=== PATIENT | female | born 1990 | race Caucasian/White ===

== ENCOUNTER 2020-09-04 13:16 | Emergency (ER) | payer OTHER, SELFPAY ==
--- NOTE | ~2020-09-04 | US_ITS ---
EXAMINATION: US pelvic complete w TV DATE: 09/04/2020 16:18 INDICATION: Left lower quadrant abdominal pain. Probable hemorrhagic ovarian cyst. TECHNIQUE: Multiple transabdominal and endovaginal sonographic images of the pelvis were obtained. COMPARISON: CT dated 09/04/2020 FINDINGS: The uterus measures 7.5 x 3.7 x 5.4 cm. The endometrial complex measures 9 mm in thickness. The righ t ovary measures 2.7 x 2.4 x 2.7 cm. The left ovary measures 2.6 x 2.8 x 2.7 cm. 2.7 x 2.3 x 2.6 cm a vascular hypoechoic region within the left ovary with small more peripheral nearly anechoic region wi th appearance suggesting early organization of clot within a hemorrhagic cyst. There is normal vascul ar flow in the ovaries. There is small amount of anechoic free fluid in the cul-de-sac which may be r elated to cyst rupture. IMPRESSION: 1. 2.7 cm complex hypoechoic lesion in the left ovary which appears avascular and most likely represe nts a hemorrhagic cyst. Consider follow-up pelvic ultrasound in 6-12 weeks to document resolution. 2. Small amount of free fluid in the cul-de-sac which could be physiologic or related to cyst rupture . Reviewed, dictated and finalized at location A. STITCHER IMPRESSION: 1. 2.7 cm complex hypoechoic lesion in the left ovary which appears avascular a nd most likely represents a hemorrhagic cyst. Consider follow-up pelvic ultraso und in 6-12 weeks to document resolution. 2. Small amount of free fluid in the cul-de-sac which could be physiologic or r elated to cyst rupture.
--- NOTE | ~2020-09-04 | CT_ITS ---
EXAMINATION: CT abdomen pelvis w con DATE: 09/04/2020 15:21 INDICATION: Left lower quadrant abdominal pain. TECHNIQUE: Computed tomography (CT) of the abdomen and pelvis was performed with 100 mL Omnipaque 350 intravenous contrast. Automated exposure control and iterative reconstruction technique were employe d. The dose-length product was 198.98 mGy-cm. COMPARISON: CT abdomen and pelvis 11/13/2016 FINDINGS: The visualized portions of the lung bases demonstrate minimal atelectasis. No pleural effus ion. The heart size is normal. No pericardial effusion. The liver, gallbladder, spleen, pancreas, adr enal glands, and left kidney are normal. There is a 3 mm cyst in right kidney. There are no dilated l oops of bowel. The appendix is normal. There are no pathologically enlarged lymph nodes. There is a s mall volume of pelvic ascites, likely physiologic. There is a 4.4 x 2.0 cm mass in left ovary. The jessie osmani are unremarkable. IMPRESSION: 1. 4.4 x 2.0 cm mass in left ovary, most likely a hemorrhagic cyst. Pelvis ultrasound is recommended. Reviewed, dictated and finalized at location B. NESS INFORMATION CONSULTANT IMPRESSION: 1. 4.4 x 2.0 cm mass in left ovary, most likely a hemorrhagic cyst. Pelvis ultr asound is recommended.
[2020-09-04 13:45] VITALS: BP 103/76; PULSE 96; RESP 16; TEMP 37.6; O2SAT 99
[2020-09-04 14:49] LABS: Basophils Absolute Auto 0.1 K/mm3 (0.0-0.1); Basophils Percent Auto 1.1 % (0.2-1.2); Eosinophils Percent Auto 0.4 % (0-4.4); Hematocrit 39.2 % (37.0-47.0); Hemoglobin 13.4 g/dL (12.0-15.0); Immature Granulocyte Absolute 0.01 K/mm3 (0.00-0.031); Immature Granulocyte Percent A 0.2 % (0-0.5); Lymphocytes Percent Auto 24.4 % (18.3-44.2); Mean Corpuscular HGB Conc 34.2 g/dl (32-36); Mean Corpuscular Hemoglobin 32.4 pg (26-34); Mean Corpuscular Volume 94.7 fl (80-100); Mean Platelet Volume 10.7 fl (7.4-10.4); Monocytes Absolute Auto 0.3 K/mm3 (0.1-0.6); Monocytes Percent Auto 5.8 % (2.6-8.5); Neutrophils Absolute Auto 3.6 K/mm3 (1.3-6.7); Neutrophils Percent Auto 68.1 % (45.5-73.1); Platelet Count Result 216 k/mm3 (150-375); Red Blood Count 4.14 M/mm3 (4.2-5.4); Red Cell Distribution Width 11.8 % (11.5-14.5); White Blood Count 5.3 K/mm3 (4.5-10.0)
[2020-09-04] MEDS: ONDANSETRON INJ 4 MG/2 ML VIAL IV PUSH (14:53)
[2020-09-04] MEDS: MORPHINE SULFATE (*CRX) 4 MG/ML INJ IV PUSH (14:53)
[2020-09-04] MEDS: SODIUM CHLORIDE 0.9% IV 1,000 ML 999 ML IV CONT (14:54)
[2020-09-04 14:59] LABS: Add Urine Microscopic? YES; Amorphous Sediment Urine Moderate; Appearance Urine Turbid (Clear); Bacteria Urine 4+ /hpf; Bilirubin Urine Negative (Negative); Blood Urine Negative (Negative); Color Urine Yellow (Yellow); Glucose Urine UA Negative (Negative); Ketones Urine 2+ mg/dL (Negative); Leukocyte Esterase Ur Negative LEU/UL (Negative); Mucus Urine Heavy /lpf; Nitrate Urine Negative (Negative); Protein Urine 1+ mg/dL (Negative); Squamous Epithelial Cell Urine Many /hpf (Few); Urobilinogen Urine Negative mg/dL (<2.0)
[2020-09-04 15:02] LABS: Alanine Aminotransferase 13 U/L (4-35); Albumin Level 4.7 g/dL (3.5-5.1); Alkaline Phosphatase 32 U/L (38-126); Anion Gap 10 mmol/L (8-16); Aspartate Amino Transferase 21 U/L (14-36); Bilirubin,Total 0.6 mg/dL (0.2-1.3); Blood Urea Nitrogen 9 mg/dL (7-17); Calcium 9.3 mg/dL (8.4-10.2); Carbon Dioxide 24 mmol/L (22-30); Chloride 106 mmol/L (98-107); Estimated CRCL calculation 114 ml/min; Estimated Glomerular Filt Rate > 60; Glucose 90 mg/dL (65-105); Lipase 100 U/L (23-300); Potassium 3.4 mmol/L (3.4-5.0); Sodium 140 mmol/L (137-145)
[2020-09-04 15:26] VITALS: BP 134/70; PULSE 70; RESP 12; O2SAT 99
[2020-09-04 16:15] VITALS: BP 127/80; PULSE 80; RESP 12; O2SAT 99
[2020-09-04 17:15] LABS: Acetaminophen < 10 ug/mL (10-30); Ethanol < 10 mg/dL (<10); Salicylate < 1.0 mg/dL (2-20)
[2020-09-04 17:25] LABS: Amphetamine Screen Urine Negative (Negative); Barbiturate Screen Urine Negative (Negative); Benzodiazepines Screen Urine Negative (Negative); Cannabinoid Screen Urine Positive (Negative); Cocaine Screen Urine Negative (Negative); Methadone Screen Urine Negative (Negative); Opiate Screen Urine Positive (Negative); Phencyclidine Screen Urine Negative (Negative)
[2020-09-04 17:26] VITALS: BP 131/89; PULSE 87; RESP 12; O2SAT 99
--- NOTE | 2020-09-04 17:30 | ED.ABDPAIN ---
HPI - Abdominal Pain General Chief Complaint: Abdominal Pain Stated Complaint: ABDOMINAL PAIN, N/V/D Time Seen by Provider: 09/04/20 14:21 History of Present Illness HPI narrative: Patient is a 29-year-old female who presents the emergency department with chief complaint of left lower quadrant abdominal pain. Patient states that for some time she has been having discomfort but recently started having nausea and vomiting did report that she is also had some diarrhea as well. Patient states the pain is sharp states it is worsened with movement and improved with rest. Patient reports that she has not had any changes in her menses. The patient does report that she has prior history of ovarian cyst. Related Data Home Medications Medication Instructions Recorded Confirmed sertraline mg 09/04/20 09/04/20 Allergies Allergy/AdvReac Type Severity Reaction Status Date / Time No Known Allergies Allergy Verified 09/04/20 13:44 Review of Systems Review of Systems: Narrative: CONSTITUTIONAL: Denies fever, chills, or sweats. EYES: Denies visual changes, redness, or discharge. ENT: Denies rhinorrhea, congestion, sore throat, or otalgia. CARDIOVASCULAR: Denies chest pain, palpitations, or edema. RESPIRATORY: Denies cough or dyspnea. GASTROINTESTINAL: Denies abdominal pain, nausea, vomiting, or diarrhea. GENITOURINARY: Denies dysuria or hematuria. SKIN: Denies rash or itching. MUSCULOSKELETAL: Denies back pain, joint pain, or myalgia. NEUROLOGIC: Denies headache, numbness, or weakness. PSYCHIATRIC: Denies anxiety or depression. All systems reviewed & are unremarkable except as noted in HPI and below PMFSH Social History Social History Gender identity (if verbalized by the patient): Female Course Vital Signs Vital signs: Vital Signs Temperature 37.6 C H 09/04/20 13:45 Pulse Rate 96 09/04/20 13:45 Respiratory Rate 16 09/04/20 13:45 Blood Pressure 103/76 09/04/20 13:45 Pulse Oximetry 99 09/04/20 13:45 Temperature 37.6 C H 09/04/20 13:45 Pulse Rate 70 09/04/20 19:04 Respiratory Rate 12 09/04/20 19:04 Blood Pressure 128/70 09/04/20 19:04 Pulse Oximetry 99 09/04/20 19:04 MDM - Abdominal Pain Lab Data Result diagrams: 09/04/20 14:35 09/04/20 14:35 Labs: Lab Results 09/04/20 09/04/20 09/04/20 Range/Units 14:35 14:35 14:35 WBC 5.3 (4.5-10.0) K/mm3 RBC 4.14 L (4.2-5.4) M/mm3 Hgb 13.4 (12.0-15.0) g/dL Hct 39.2 (37.0-47.0) % MCV 94.7 (80-100) fl MCH 32.4 (26-34) pg MCHC 34.2 (32-36) g/dl RDW 11.8 (11.5-14.5) % Plt Count 216 (150-375) k/mm3 MPV 10.7 H (7.4-10.4) fl Immature Gran % (Auto) 0.2 (0-0.5) % Neut % (Auto) 68.1 (45.5-73.1) % Lymph % (Auto) 24.4 (18.3-44.2) % [place] % (Auto) 5.8 (2.6-8.5) % Eos % (Auto) 0.4 (0-4.4) % Baso % (Auto) 1.1 (0.2-1.2) % Lymph # (Auto) 1.30 (0.9-3.2) K/mm3 [place] # (Auto) 0.3 (0.1-0.6) K/mm3 Eos # (Auto) 0.0 (0-0.3) K/mm3 Baso # (Auto) 0.1 (0.0-0.1) K/mm3 Abs Immat Gran (auto) 0.01 (0.00-0.031) K/mm3 Absolute Neuts (auto) 3.6 (1.3-6.7) K/mm3 Absolute Nucleated RBC 0.0 (0.0-0.012) K/mm3 Nucleated RBC % 0.0 (0.0-0.2) % Sodium 140 (137-145) mmol/L Potassium 3.4 (3.4-5.0) mmol/L Chloride 106 (98-107) mmol/L Carbon Dioxide 24 (22-30) mmol/L Anion Gap 10 (8-16) mmol/L BUN 9 (7-17) mg/dL Creatinine 0.60 L (0.7-1.0) mg/dL Estim Creat Clear Calc 114 ml/min Estimated GFR > 60 (59 - ) Glucose 90 (65-105) mg/dL Calcium 9.3 (8.4-10.2) mg/dL Total Bilirubin 0.6 (0.2-1.3) mg/dL AST 21 (14-36) U/L ALT 13 (4-35) U/L Alkaline Phosphatase 32 L (38-126) U/L Total Protein 7.0 (6.3-8.2) g/dL Albumin 4.7 (3.5-5.1) g/dL Lipase 100 (23-300) U/L TSH (0.465-4.680) uIU/mL Urine Color Yellow (Yellow) Urine Appearance Turbid H (
[2020-09-04 19:04] VITALS: BP 128/70; PULSE 70; RESP 12; O2SAT 99
[2020-09-04 19:50] VITALS: RESP 17
== END 2020-09-04 19:50 | disposition home or self-care (01) ==
PROVIDERS: Emergency Medicine; Emergency Provider Emergency Medicine; PCP Family Medicine
DX: N83.202 Unspecified ovarian cyst, left side (principal); F32.9 Major depressive disorder, single episode, unspecified
CPT/HCPCS: 36415; 74177; 76830; 76856; 80053; 80307; 81001; 81025; 83690; 84443; 85025; 96361; 96374; 96375; 99284; J2270; J2405; J7030; Q9967

== ENCOUNTER 2020-10-06 10:45 | Emergency (ER) | payer OTHER, SELFPAY ==
[2020-10-06] VITALS (8 sets, daily range): BP systolic 102–133; BP diastolic 63–77; PULSE 81–113; RESP 16–20; TEMP 36.4–36.9; O2SAT 95–100
--- NOTE | ~2020-10-06 | US_ITS ---
EXAMINATION: US pelvic complete w TV DATE: 10/06/2020 14:10 INDICATION: Left pelvic pain TECHNIQUE: Multiple transabdominal and endovaginal sonographic images of the pelvis were obtained. COMPARISON: None. FINDINGS: The uterus measures 8.2 x 5.4 x 3.7 cm. The endometrial complex measures 11 mm in thickness. The rig ht ovary measures 2.8 x 1.6 x 1.7 cm. There are a few subcentimeter anechoic follicles in the right o vary, the largest measuring up to 9 mm. The left ovary measures 4.8 x 2.4 x 2.5 cm. 2.5 cm hypoechoic likely complex cystic lesion in the left ovary. 2.3 cm anechoic cyst in the left ovary with smaller 7 mm secondary anechoic cystic region within the larger cyst by a thin septation. Finally t here is a 2.3 cm isoechoic lesion within the left ovary with no internal flow on color Doppler sugges ting an additional complex cystic lesion. There is normal vascular flow in the ovaries. There is smal l amount of likely physiologic free fluid in the pelvis. IMPRESSION: 1. Anechoic cyst with single thin internal septation. 2. Additional 2.5 cm hypoechoic and 2.3 cm isoechoic lesions in the left ovary which are most likely complex cystic with differential including hemorrhagic cyst or endometrioma although particularly for the isoechoic lesion could not absolutely exclude solid neoplasm. Would recommend follow-up pre and postcontrast MRI for more definitive determination. Reviewed, dictated and finalized at location A. RVISOR LAST MODEL DEPARTMENT IMPRESSION: 1. Anechoic cyst with single thin internal septation. 2. Additional 2.5 cm hypoechoic and 2.3 cm isoechoic lesions in the left ovary which are most likely complex cystic with differential including hemorrhagic cy st or endometrioma although particularly for the isoechoic lesion could not abs olutely exclude solid neoplasm. Would recommend follow-up pre and postcontrast MRI for more definitive determination.
--- NOTE | ~2020-10-06 | CT_ITS ---
EXAMINATION: CT abdomen pelvis w con DATE: 10/06/2020 12:12 INDICATION: Right lower quadrant abdominal pain. TECHNIQUE: Computed tomography (CT) of the abdomen and pelvis was performed with 100 mL Omnipaque-350 intravenous contrast. Automated exposure control and iterative reconstruction technique were employe d. The dose-length product was 192.69 mGy-cm. COMPARISON: 09/04/2020 FINDINGS: Lung bases are clear. Heart size is normal. No pericardial or pleural effusion. Liver, gallbladder, s pleen, pancreas and bilateral adrenal glands are normal. Small region of cortical scarring at the low er pole of the left kidney. 4 mm right renal cyst. Normal appendix. No bowel obstruction. Cystic stru cture/structures at the right adnexa with greater than simple fluid attenuation which could represent 3 separate hemorrhagic cysts measuring between 2-3 cm or potentially a hydrosalpinx/pyosalpinx. Smal l amount of ascites in the deep pelvis. No free intraperitoneal gas. No pathologically enlarged abdom inal or pelvic lymphadenopathy. Bones are unremarkable. IMPRESSION: 1. Cystic structures are structures at the left adnexa unclear whether 3 separate complex likely hemo rrhagic cysts or contiguous hydrosalpinx/pyosalpinx. Could consider pelvic ultrasound for further tangela luation. 2. Small amount of ascites in the deep pelvis which could be reactive or physiologic. Reviewed, dictated and finalized at location A. MATIC CORN GRINDER OPERATOR IMPRESSION: 1. Cystic structures are structures at the left adnexa unclear whether 3 separa te complex likely hemorrhagic cysts or contiguous hydrosalpinx/pyosalpinx. Coul d consider pelvic ultrasound for further evaluation. 2. Small amount of ascites in the deep pelvis which could be reactive or physio logic.
--- NOTE | 2020-10-06 11:24 | ED.NAVMDI ---
HPI - Nausea/Vomiting/Diarrhea General Chief complaint: Nausea/Vomiting/Diarrhea Stated complaint: N/V X4D Time Seen by Provider: 10/06/20 11:13 Source: patient Mode of arrival: ambulatory Limitations: no limitations History of Present Illness HPI Narrative: 29 years old white female presents with nausea and vomiting for the last 48 hours. Patient unable to keep anything down. History of chronic left lower quadrant pain for months secondary to ovarian cyst, and the pain got slightly worse with the vomiting. Patient scheduled to see her [facility] PLANNER at [facility] next week for possible surgery Patient denies any fever, chills, diarrhea, respiratory symptoms, headache, sore throat. Or exposure to anybody with COVID-19 Related Data Home Medications Medication Instructions Recorded Confirmed sertraline 150 mg PO DAILY 09/04/20 10/06/20 Allergies Allergy/AdvReac Type Severity Reaction Status Date / Time No Known Allergies Allergy Verified 10/06/20 11:37 Review of Systems Review of Systems: Narrative: CONSTITUTIONAL: Denies fever, chills, or sweats. EYES: Denies visual changes, redness, or discharge. ENT: Denies rhinorrhea, congestion, sore throat, or otalgia. CARDIOVASCULAR: Denies chest pain, palpitations, or edema. RESPIRATORY: Denies cough or dyspnea. GASTROINTESTINAL: Denies abdominal pain, nausea, vomiting, or diarrhea. GENITOURINARY: Denies dysuria or hematuria. SKIN: Denies rash or itching. MUSCULOSKELETAL: Denies back pain, joint pain, or myalgia. NEUROLOGIC: Denies headache, numbness, or weakness. PSYCHIATRIC: Denies anxiety or depression. [facility] Past Medical History Medical History (Updated 10/06/20 @ 16:59 by Sloan Latif MD) Ovarian cyst Social History Social History (Updated 10/06/20 @ 11:28 by Sloan Latif MD) Social History: Patient denies smoking, drinking or using drugs Second hand tobacco smoke exposure: No Gender identity (if verbalized by the patient): Female Exam Narrative: Exam Narrative: General appearance: Well-developed, well-nourished Skin: Normal color Head: Normocephalic, nontraumatic Eyes: Clear conjunctiva ENT: Oropharynx normal, ears normal, nose normal Neck: Supple, nontender Chest and respiratory: Airway patent, no respiratory distress, no accessory muscle use Heart: Regular rate/rhythm Abdomen: Soft, mild tenderness with deep palpation of the left lower quadrant, no organomegaly, quiet bowel sounds Vascular: Normal peripheral pulses, normal capillary refill. Musculoskeletal: Neurologic: Alert and oriented ?3, SUPERVISOR SAWING AND ASSEMBLY is normal as tested, no gross motor deficit Course Course Emergency Course: Stable Vital Signs Vital signs: Vital Signs Temperature 36.9 C 10/06/20 11:01 Pulse Rate 110 H 10/06/20 11:01 Respiratory Rate 10/06/20 11:01 Blood Pressure 133/68 10/06/20 11:01 Pulse Oximetry 99 10/06/20 11:01 Temperature 36.9 C 10/06/20 11:01 Pulse Rate 110 H 10/06/20 11:01 Respiratory Rate 10/06/20 11:01 Blood Pressure 133/68 10/06/20 11:01 Pulse Oximetry 99 10/06/20 11:01 MDM - Nausea/Vomiting/Diarrhea Lab Data Labs: UCG Bedside Result Negative Reference Range: Negative Discharge Plan Discharge Clinical Impression: Ovarian cyst Qualifiers: Laterality: left Qualified Code(s): N83.202 - Unspecified ovarian cyst, left side Vomiting Qualifiers: Vomiting type: unspecified Vomiting Intractability: non-intractable Nausea presence: with nausea Qualified Code(s): R11.2 - Nausea with vomiting, unspecified Patient Disposition: Home, Self-Care Condition: Stable Instructions:
[2020-10-06 11:32] LABS: Basophils Absolute Auto 0.1 K/mm3 (0.0-0.1); Basophils Percent Auto 0.7 % (0.2-1.2); Eosinophils Percent Auto 0.1 % (0-4.4); Hemoglobin 13.6 g/dL (12.0-15.0); Immature Granulocyte Absolute 0.02 K/mm3 (0.00-0.031); Immature Granulocyte Percent A 0.2 % (0-0.5); Lymphocytes Absolute Auto 0.87 K/mm3 (0.9-3.2); Lymphocytes Percent Auto 10.7 % (18.3-44.2); Mean Corpuscular Hemoglobin 32.4 pg (26-34); Mean Corpuscular Volume 95.2 fl (80-100); Mean Platelet Volume 10.5 fl (7.4-10.4); Monocytes Absolute Auto 0.4 K/mm3 (0.1-0.6); Monocytes Percent Auto 4.8 % (2.6-8.5); Neutrophils Absolute Auto 6.8 K/mm3 (1.3-6.7); Neutrophils Percent Auto 83.5 % (45.5-73.1); Platelet Count Result 223 k/mm3 (150-375); Red Cell Distribution Width 12.3 % (11.5-14.5); White Blood Count 8.1 K/mm3 (4.5-10.0)
[2020-10-06] MEDS: SODIUM CHLORIDE 0.9% IV 1,000 ML 999 ML IV CONT (11:42)
[2020-10-06 11:44] LABS: Add Urine Microscopic? YES; Alanine Aminotransferase 19 U/L (4-35); Albumin Level 4.9 g/dL (3.5-5.1); Alkaline Phosphatase 36 U/L (38-126); Anion Gap 17 mmol/L (8-16); Appearance Urine Cloudy (Clear); Aspartate Amino Transferase 28 U/L (14-36); Bacteria Urine 3+ /hpf; Bilirubin Urine Negative (Negative); Bilirubin,Total 0.8 mg/dL (0.2-1.3); Blood Urea Nitrogen 12 mg/dL (7-17); Blood Urine 1+ (Negative); Calcium 9.4 mg/dL (8.4-10.2); Carbon Dioxide 14 mmol/L (22-30); Chloride 107 mmol/L (98-107); Color Urine Yellow (Yellow); Estimated CRCL calculation 105 ml/min; Estimated Glomerular Filt Rate > 60; Glucose 84 mg/dL (65-105); Glucose Urine UA Negative (Negative); Ketones Urine 2+ mg/dL (Negative); Leukocyte Esterase Ur Negative LEU/UL (Negative); Lipase 75 U/L (23-300); Mucus Urine Rare /lpf; Nitrate Urine Negative (Negative); Potassium 3.9 mmol/L (3.4-5.0); Protein Urine 2+ mg/dL (Negative); RBC Urine 0-2 /hpf (0-2); Sodium 138 mmol/L (137-145); Specific Grav Ur 1.025 (1.001-1.035); Squamous Epithelial Cell Urine Many /hpf (Few); Transitional Epi Cells Urine Rare /hpf (None Seen); Urobilinogen Urine Negative mg/dL (<2.0)
[2020-10-06] MEDS: ONDANSETRON INJ 4 MG/2 ML VIAL IV PUSH ×2 (11:44→13:17)
[2020-10-06] MEDS: HYDROmorphone HCL INJ (*CRX) 1 MG/ML SYR 0.5 MG IV PUSH (11:45)
--- NOTE | 2020-10-06 15:22 | PC.NURSE ---
Patient provided with crackers and drink. She will eat and drink and if able to keep this down, plan by EDP to send the patient home. EDP discussed this with the patient and she is in agreement with the plan. Patient up to the bathroom and then to attempt PO Challenge.
--- NOTE | 2020-10-06 15:58 | PC.NURSE ---
Patient reports worsening nausea after PO challenge. States that she feels like she will vomit, but has not yet vomited. EDP in room and verbal order for 1 mg Ativan to be given IV Push was received and repeated back to Dr. Latif. Order was placed as stated by the EDP.
[2020-10-06] MEDS: LORazepam INJ (*CRX) 2 MG/ML VIAL 1 MG IV PUSH (15:59)
--- NOTE | 2020-10-06 16:40 | PC.NURSE ---
EDP notified that patient feels well, denies nausea, and is keeping food and drink from PO challenge down.
== END 2020-10-06 17:19 | disposition home or self-care (01) ==
PROVIDERS: Emergency Provider Emergency Medicine; PCP Family Medicine
DX: N83.202 Unspecified ovarian cyst, left side (principal); R11.2 Nausea with vomiting, unspecified
CPT/HCPCS: 36415; 74177; 76830; 76856; 80053; 81001; 81025; 83690; 85025; 87086; 87088; 96361; 96374; 96375; 96376; 99284; J1170; J2060; J2405; J7030; Q9967

== ENCOUNTER 2022-01-04 14:08 | Emergency (ER) | payer OTHER, SELFPAY ==
[2022-01-04 14:18] VITALS: BP 112/72; PULSE 104; RESP 16; TEMP 37.1; O2SAT 99
--- NOTE | 2022-01-04 14:31 | ED.GENADULT ---
HPI - General Adult General Chief complaint: Extremity Problem,Nontraumatic Stated complaint: left wrist pain Source: patient Mode of arrival: ambulatory Limitations: no limitations History of Present Illness HPI narrative: Patient presents for evaluation of left wrist pain. Symptom onset approximately 1 week ago. She cannot identify any precipitating cause or injury. Pain is progressively worsening. She states pain is sharp , rated 10/10 in severity, worse with movements. She is right-hand dominant. She denies paresthesias. She tried taking Tylenol without considerable improvement in her symptoms thereafter. She is currently , 24 weeks gestation. She has had a confirmed IUP per U/S during this . No vaginal bleeding or abdominal pain. No hx of wrist pain in past. Related Data Home Medications Medication Instructions Recorded Confirmed sertraline 150 mg PO DAILY 09/04/20 10/06/20 [id number] 1 tablet PO DAILY 01/04/22 01/04/22 [] Allergies Allergy/AdvReac Type Severity Reaction Status Date / Time No Known Allergies Allergy Verified 01/04/22 14:33 Review of Systems Review of Systems: CONSTITUTIONAL: Denies fever, chills, or sweats. EYES: Denies visual changes, redness, or discharge. ENT: Denies rhinorrhea, congestion, sore throat, or otalgia. CARDIOVASCULAR: Denies chest pain, palpitations, or edema. RESPIRATORY: Denies cough or dyspnea. GASTROINTESTINAL: Denies abdominal pain, nausea, vomiting, or diarrhea. GENITOURINARY: Denies dysuria or hematuria. SKIN: Denies rash or itching. MUSCULOSKELETAL: Reports left wrist pain. Denies back pain or myalgia. NEUROLOGIC: Denies headache, numbness, dizziness, or weakness. PSYCHIATRIC: Denies anxiety or depression. [facility] Past Medical History Medical History Ovarian cyst Surgical History Surgical History H/O arthroscopy of knee Family History Family History Father Diabetes mellitus Pancreatic cancer Social History Social History Social History: Patient denies smoking, drinking or using drugs Smoking status: Never smoker Second hand tobacco smoke exposure: No Substance use: never Living arrangements: with family Gender identity (if verbalized by the patient): Female Sexual Orientation (if Verbalized by the Patient): Straight or Heterosexual Spiritual care concerns: No Exam Narrative: GENERAL: Well-appearing, well-nourished, and in no acute distress. HEAD: Normocephalic, atraumatic. EYES: PERRLA and EOMI. ENT: Nares clear, no rhinorrhea or epistaxis. Mucous membranes moist. Oropharynx without tonsillar hypertrophy exudate or other lesions. Bilateral TMs pearly jauregui nonbulging NECK: Supple. No adenopathy or masses. No carotid bruits or JVD CHEST: Clear to auscultation. No respiratory distress. No wheezes rales or rhonchi HEART: Regular rate and rhythm. No murmur heard. Normal peripheral pulses. ABDOMEN: Soft, nontender, nondistended, normal active bowel sounds. EXTREMITIES:There is some tenderness in left wrist overlying distal radius. There is no crepitus or deformity. I do not appreciate any swelling on exam. Full range of motion intact but movement reproduces pain in the affected joint. 4 out of 5 handgrip strength on the left, 5 out of 5 hand pneumatic tester strength on the right. Negative Tinel sign. Negative Phalen sign. SKIN: Warm, dry, no rash. NEURO: No focal deficits. Alert and oriented x3. PSYCH: Normal mood and affect. Course Course Emergency Course: This is a 31-year-old female who presented with reports of left wrist pain. We initially agreed to plans for x-ray of her wrist. At the time of written consent, patient changed her mind and d
== END 2022-01-04 14:53 | disposition home or self-care (01) ==
PROVIDERS: Emergency Provider Nurse Practitioner
DX: O99.891 Other specified diseases and conditions complicating pregnancy (principal); Z3A.24 24 weeks gestation of pregnancy; M25.532 Pain in left wrist
CPT/HCPCS: 99213; G0463

== ENCOUNTER 2024-02-04 08:49 | Emergency (ER) | payer OTHER, BC, SELFPAY ==
[2024-02-04 08:50] VITALS: BP 114/73; PULSE 88; RESP 20; TEMP 36.6; O2SAT 100
[2024-02-04] MEDS: SODIUM CHLORIDE 0.9% IV 1,000 ML 999 ML IV CONT ×2 (09:35→11:23)
[2024-02-04] MEDS: FAMOTIDINE 20 MG/2 ML VIAL IV PUSH (09:35)
[2024-02-04] MEDS: ONDANSETRON INJ 4 MG/2 ML VIAL IV PUSH (09:35)
[2024-02-04 09:40] LABS: Basophils Percent Auto 0.5 % (0.2-1.2); Eosinophils Percent Auto 0.5 % (0-4.4); Hematocrit 33.4 % (37.0-47.0); Hemoglobin 11.7 g/dL (12.0-15.0); Immature Granulocyte Absolute 0.01 K/mm3 (0.00-0.031); Immature Granulocyte Percent A 0.2 % (0-0.5); Lymphocytes Absolute Auto 1.22 K/mm3 (0.9-3.2); Lymphocytes Percent Auto 20.5 % (18.3-44.2); Mean Corpuscular Volume 94.1 fl (80-100); Mean Platelet Volume 10.2 fl (7.4-10.4); Monocytes Absolute Auto 0.3 K/mm3 (0.1-0.6); Monocytes Percent Auto 5.5 % (2.6-8.5); Neutrophils Absolute Auto 4.3 K/mm3 (1.3-6.7); Neutrophils Percent Auto 72.8 % (45.5-73.1); Platelet Count Result 222 k/mm3 (150-375); Red Blood Count 3.55 M/mm3 (4.2-5.4); Red Cell Distribution Width 12.1 % (11.5-14.5)
[2024-02-04 09:51] LABS: Alanine Aminotransferase 14 U/L (6-35); Albumin Level 4.3 g/dL (3.5-5.1); Alkaline Phosphatase 33 U/L (38-126); Anion Gap 8 mmol/L (4-12); Aspartate Amino Transferase 17 U/L (14-36); Bilirubin,Total 0.8 mg/dL (0.2-1.3); Blood Urea Nitrogen 8 mg/dL (7-17); Calcium 9.5 mg/dL (8.4-10.2); Carbon Dioxide 21 mmol/L (22-30); Chloride 107 mmol/L (98-107); Estimated CRCL calculation 128 ml/min; Estimated Glomerular Filt Rate > 60; Glucose 95 mg/dL (65-110); Lipase 66 U/L (23-300); Potassium 3.7 mmol/L (3.4-5.0); Sodium 136 mmol/L (137-145)
[2024-02-04 11:44] VITALS: BP 102/71; PULSE 79; RESP 18; O2SAT 100
[2024-02-04 11:56] LABS: Appearance Urine Cloudy (Clear); Bacteria Urine 1+ /hpf; Bilirubin Urine Negative (Negative); Blood Urine Negative (Negative); Color Urine Dark Yellow (Yellow); Glucose Urine UA Negative (Negative); Ketones Urine 2+ mg/dL (Negative); Leukocyte Esterase Ur 1+ LEU/UL (Negative); Need Manual Microscopic Reviewed; Nitrate Urine Negative (Negative); Protein Urine Trace mg/dL (Negative); Specific Grav Ur 1.023 (1.001-1.035); Squamous Epithelial Cell Urine Many /hpf (Few)
[2024-02-04 11:57] LABS: Amorphous Sediment Urine Moderate
[2024-02-04 11:59] LABS: Add Urine Microscopic? YES
--- NOTE | 2024-02-04 12:20 | ED.NAVMDI ---
HPI - Nausea/Vomiting/Diarrhea General Chief complaint: Nausea/Vomiting/Diarrhea Stated complaint: N/V, dizziness-12 weeks Time Seen by Provider: 02/04/24 08:54 History of Present Illness HPI Narrative: Patient is a 33-year-old at 12 weeks in gestation who presents ER with nausea vomiting. She has had bad vomiting during this and has [facility] multiple times. She has been taking Zofran and Reglan and promethazine. She is also on likely just. No fevers or chills. No urinary symptoms. Denies syncope. Related Data Home Medications Medication Instructions Recorded Confirmed sertraline 100 mg tablet 150 mg PO DAILY 09/04/20 01/04/22 [id number] 1 mg 1 tablet PO DAILY 01/04/22 01/04/22 tablet Allergies Allergy/AdvReac Type Severity Reaction Status Date / Time No Known Allergies Allergy Verified 02/04/24 08:49 Review of Systems Review of Systems: All systems reviewed & are unremarkable except as noted in HPI and below Constitutional: Constitutional: Reports no additional constitutional complaints ENT: Reports system reviewed and no additional complaints, except as documented Cardiovascular: Cardiovascular: Reports no additional cardiovascular complaints Respiratory: Respiratory: Reports no additional respiratory complaints Gastrointestinal: Gastrointestinal: Denies abdominal pain, Reports nausea and Reports vomiting Musculoskeletal: Musculoskeletal: Reports no additional musculoskeletal complaints PMFSH Past Medical History Medical History Ovarian cyst Surgical History Surgical History H/O arthroscopy of knee Family History Family History Father Diabetes mellitus Pancreatic cancer Social History Social History Social History: Patient denies smoking, drinking or using drugs Smoking status: Never smoker Second hand tobacco smoke exposure: No Substance use: never Living arrangements: with family Gender identity (if verbalized by the patient): Female Sexual Orientation (if Verbalized by the Patient): Straight or Heterosexual Spiritual care concerns: No Exam Narrative: GENERAL: Well-appearing, well-nourished, and in no acute distress. HEAD: Normocephalic, atraumatic. ENT: Mucous membranes moist. CHEST: Clear to auscultation. No respiratory distress. HEART: Regular rate and rhythm. Normal peripheral pulses. ABDOMEN: Soft, nontender, nondistended. EXTREMITIES: Normal range of motion. No edema. SKIN: Warm, dry, no rash. NEURO: Alert and oriented x3. PSYCH: Normal mood and affect. Course Course Emergency Course: Patient resting comfortably, 2L IVF, zofran, tolerating PO, d/c. Vital Signs Vital signs: Vital Signs Temperature 97.8 F 02/04/24 08:50 Pulse Rate 88 02/04/24 08:50 Respiratory Rate 20 02/04/24 08:50 Blood Pressure 114/73 02/04/24 08:50 Pulse Oximetry 100 02/04/24 08:50 Oxygen Delivery Room Air 02/04/24 08:50 Temperature 97.8 F 02/04/24 08:50 Pulse Rate 79 02/04/24 11:44 Respiratory Rate 18 02/04/24 11:44 Blood Pressure 102/71 02/04/24 11:44 Pulse Oximetry 100 02/04/24 11:44 Oxygen Delivery Room Air 02/04/24 08:50 MDM - Nausea/Vomiting/Diarrhea Lab Data 02/04/24 09:32 02/04/24 09:32 Labs: Lab Results 02/04/24 02/04/24 Range/Units 09:32 11:21 WBC 6.0 (4.5-10.0) K/mm3 RBC 3.55 L (4.2-5.4) M/mm3 Hgb 11.7 L (12.0-15.0) g/dL Hct 33.4 L (37.0-47.0) % MCV 94.1 (80-100) fl MCH 33.0 (26-34) pg MCHC 35.0 (32-36) g/dl RDW 12.1 (11.5-14.5) % Plt Count 222 (150-375) k/mm3 MPV 10.2 (7.4-10.4) fl Immature Gran
== END 2024-02-04 12:43 | disposition home or self-care (01) ==
PROVIDERS: Emergency Provider Emergency Medicine; PCP Physician Assistant
DX: O21.0 Mild hyperemesis gravidarum (principal); Z3A.12 12 weeks gestation of pregnancy; R82.71 Bacteriuria
CPT/HCPCS: 36415; 80053; 81001; 83690; 85025; 87086; 96361; 96374; 96375; 99284; J2405; J7030